=== PATIENT | female | born 2000 | race Caucasian/White ===

== ENCOUNTER 2024-02-10 16:04 | Inpatient (IN) | payer OTHER, SELFPAY ==
[2024-02-10] VITALS (53 sets, daily range): BP systolic 86–138; BP diastolic 47–83; PULSE 42–94; TEMP 36.5–37.1; O2SAT 92–100; BMI 33.3
[2024-02-10 16:49] LABS: Basophils Percent Auto 0.3 % (0.2-1.2); Eosinophils Absolute Auto 0.1 K/mm3 (0-0.3); Eosinophils Percent Auto 1.3 % (0-4.4); Hematocrit 31.4 % (37.0-47.0); Hemoglobin 10.4 g/dL (12.0-15.0); Immature Granulocyte Absolute 0.03 K/mm3 (0.00-0.031); Immature Granulocyte Percent A 0.4 % (0-0.5); Lymphocytes Absolute Auto 2.49 K/mm3 (0.9-3.2); Lymphocytes Percent Auto 31.1 % (18.3-44.2); Mean Corpuscular HGB Conc 33.1 g/dl (32-36); Mean Corpuscular Hemoglobin 30.5 pg (26-34); Mean Corpuscular Volume 92.1 fl (80-100); Mean Platelet Volume 9.5 fl (7.4-10.4); Monocytes Absolute Auto 0.6 K/mm3 (0.1-0.6); Monocytes Percent Auto 7.3 % (2.6-8.5); Neutrophils Absolute Auto 4.8 K/mm3 (1.3-6.7); Neutrophils Percent Auto 59.6 % (45.5-73.1); Platelet Count Result 240 k/mm3 (150-375); Red Blood Count 3.41 M/mm3 (4.2-5.4); Red Cell Distribution Width 13.4 % (11.5-14.5)
[2024-02-10] MEDS: miSOPROStol 25 MCG TABLET 50 MCG BUCCAL ×2 (16:53→20:56)
--- NOTE | 2024-02-10 17:03 | LDADM ---
This patient, Yon Kay, was admitted to Labor/Delivery/Recovery 104 on 02/10/24 at 16:04. Plans for labor, pain management and were discussed with patient. Patient/family oriented to hospital policies and general routines including ID bracelet, bed and alarms, visiting hours, pain management, procedures, bathroom and other care routines, personal items, smoking policy, room service/diet and guest tray routines, security routines, and visiting hours. Patient/Family are encouraged to report perceived risks to care and to ask questions if they do not understand what they are told or what they should do. See OBIX for further documentation.
--- NOTE | 2024-02-10 17:36 | WPDANESEPP ---
Anes - Eval Pre Procedure Procedure: Labor epidural Date/Time: 02/10/24 17:36 Surgeon: Paco Preop Diagnosis: Abdominal pain with contractions Pre Op Diagnosis: IOL Patient Data Age: 23 Gender: F Height: 1.73 m Weight: 99.5 kg Last Vital Signs Pulse 80 02/10/24 17:31 BP 86/47 L 02/10/24 17:31 O2 Del Method Room Air 02/10/24 16:58 Allergies Allergy/AdvReac Type Severity Reaction Status Date / Time amoxicillin Allergy Hives Verified 02/10/24 16:53 penicillin G Allergy Hives Verified 02/10/24 16:53 Home Medications Medication Instructions Recorded Confirmed Type Calcium 600 Iron/D 1 caplet PO DAILY 02/10/24 02/10/24 History Daily 1 pill PO DAILY 02/10/24 02/10/24 History Laboratory Tests 02/10/24 16:21 WBC 8.0 K/mm3 (4.5-10.0) RBC 3.41 L M/mm3 (4.2-5.4) Hgb 10.4 L g/dL (12.0-15.0) Hct 31.4 L % (37.0-47.0) MCV 92.1 fl (80-100) MCH 30.5 pg (26-34) MCHC 33.1 g/dl (32-36) RDW 13.4 % (11.5-14.5) Plt Count 240 k/mm3 (150-375) MPV 9.5 fl (7.4-10.4) Immature Gran % (Auto) 0.4 % (0-0.5) Neut % (Auto) 59.6 % (45.5-73.1) Lymph % (Auto) 31.1 % (18.3-44.2) [place] % (Auto) 7.3 % (2.6-8.5) Eos % (Auto) 1.3 % (0-4.4) Baso % (Auto) 0.3 % (0.2-1.2) Lymph # (Auto) 2.49 K/mm3 (0.9-3.2) [place] # (Auto) 0.6 K/mm3 (0.1-0.6) Eos # (Auto) 0.1 K/mm3 (0-0.3) Baso # (Auto) 0.0 K/mm3 (0.0-0.1) Abs Immat Gran (auto) 0.03 K/mm3 (0.00-0.031) Absolute Neuts (auto) 4.8 K/mm3 (1.3-6.7) Absolute Nucleated RBC 0.000 K/mm3 (0.0-0.012) Nucleated RBC % 0.0 % (0.0-0.2) RPR Pending HIV 1&2 Ab/P24 Ag 4thGn Pending Blood Type A Positive Antibody Screen Pending : gestational age HCG: positive Patient hx anesthesia problems: none Family hx anesthesia problems: none Results Review: All pre-operative results and documents have been reviewed as part of the pre-operative evaluation. [facility] Past Medical History Medical History (Updated 02/10/24 @ 17:37 by Musa Vieyra Jr., CRNA) Obesity and not yet delivered Social History Social History Smoking status: Never smoker Second hand tobacco smoke exposure: Yes Substance use: never Do You Feel Safe in your Home?: Yes Lack of Transportation: No Lack of Food: Never True Current Housing: I Have Housing Concerned About Future Housing: No Difficulty Paying Gas/Electric Bills: No Difficulty Paying for Meds: No Currently Unemployed: No Education: High School Diploma/GED Difficulty w/ Childcare or Family Care: No Spiritual care concerns: No Exam Day of Procedure 02/10/24 17:36 Patient weight: obese
[2024-02-10 17:41] LABS: HIV 1/2 Ab P24 Ag Result Negative (Negative)
[2024-02-10 18:22] LABS: Rapid Plasma Reagin Non-Reactive (NonReactive)
[2024-02-10] MEDS: ONDANSETRON INJ 4 MG/2 ML VIAL IV PUSH (19:14)
[2024-02-11] VITALS (388 sets, daily range): BP systolic 73–178; BP diastolic 30–158; PULSE 25–160; TEMP 36.2–37.1; O2SAT 80–100
[2024-02-11] MEDS: miSOPROStol 25 MCG TABLET 50 MCG BUCCAL ×2 (00:55→06:58)
[2024-02-11] MEDS: ONDANSETRON INJ 4 MG/2 ML VIAL IV PUSH ×2 (02:32→14:21)
[2024-02-11] MEDS: fentaNYL CITRATE INJ (*CRX) 100 MCG/2 ML VIAL 50 MCG IV PUSH ×3 (03:45→15:29)
[2024-02-11] MEDS: METOCLOPRAMIDE HCL INJ 10 MG/2 ML VIAL IV PUSH ×2 (03:50→12:02)
--- NOTE | 2024-02-11 07:20 | WPDOBADMIT ---
Obstetrics - Admit Note Admission Note: record reviewed. No pertinent additions to the history and/or any subsequent changes in the physical findings that are not consistent with the expected course of the were found. Additions to the history and/or subsequent changes in the physical findings follow. Pt here for IOL for IUGR, anticipate vaginal delivery
--- NOTE | 2024-02-11 12:12 | WPDANESEPP ---
Anes - Eval Pre Procedure Procedure: labor epidural Date/Time: 02/11/24 12:12 Surgeon: marie Preop Diagnosis: pain during labor Pre Op Diagnosis: IOL Patient Data Age: 23 Gender: F Height: 1.73 m Weight: 99.5 kg Last Vital Signs Temp 37.0 C 02/11/24 07:00 Pulse 51 L 02/11/24 12:01 BP 134/37 L 02/11/24 12:01 Pulse Ox 100 02/11/24 12:09 O2 Del Method Room Air 02/10/24 16:58 Allergies Allergy/AdvReac Type Severity Reaction Status Date / Time amoxicillin Allergy Hives Verified 02/10/24 16:53 penicillin G Allergy Hives Verified 02/10/24 16:53 Home Medications Medication Instructions Recorded Confirmed Type Calcium 600 Iron/D 1 caplet PO DAILY 02/10/24 02/10/24 History Daily 1 pill PO DAILY 02/10/24 02/10/24 History Laboratory Tests 02/10/24 16:21 WBC 8.0 K/mm3 (4.5-10.0) RBC 3.41 L M/mm3 (4.2-5.4) Hgb 10.4 L g/dL (12.0-15.0) Hct 31.4 L % (37.0-47.0) MCV 92.1 fl (80-100) MCH 30.5 pg (26-34) MCHC 33.1 g/dl (32-36) RDW 13.4 % (11.5-14.5) Plt Count 240 k/mm3 (150-375) MPV 9.5 fl (7.4-10.4) Immature Gran % (Auto) 0.4 % (0-0.5) Neut % (Auto) 59.6 % (45.5-73.1) Lymph % (Auto) 31.1 % (18.3-44.2) Door % (Auto) 7.3 % (2.6-8.5) Eos % (Auto) 1.3 % (0-4.4) Baso % (Auto) 0.3 % (0.2-1.2) Lymph # (Auto) 2.49 K/mm3 (0.9-3.2) Door # (Auto) 0.6 K/mm3 (0.1-0.6) Eos # (Auto) 0.1 K/mm3 (0-0.3) Baso # (Auto) 0.0 K/mm3 (0.0-0.1) Abs Immat Gran (auto) 0.03 K/mm3 (0.00-0.031) Absolute Neuts (auto) 4.8 K/mm3 (1.3-6.7) Absolute Nucleated RBC 0.000 K/mm3 (0.0-0.012) Nucleated RBC % 0.0 % (0.0-0.2) RPR Non-reactive (NonReactive) HIV 1&2 Ab/P24 Ag 4thGn Negative (Negative) Blood Type A Positive Antibody Screen Negative : gestational age HCG: positive Patient hx anesthesia problems: none Family hx anesthesia problems: none Results Review: All pre-operative results and documents have been reviewed as part of the pre-operative evaluation. [facility] Past Medical History Medical History (Updated 02/10/24 @ 17:37 by Musa Vieyra Jr., CRNA) Obesity and not yet delivered Social History Social History Smoking status: Never smoker Second hand tobacco smoke exposure: Yes Substance use: never Do You Feel Safe in your Home?: Yes Lack of Transportation: No Lack of Food: Never True Current Housing: I Have Housing Concerned About Future Housing: No Difficulty Paying Gas/Electric Bills: No Difficulty Paying for Meds: No Currently Unemployed: No Education: High School Diploma/GED Difficulty w/ Childcare or Family Care: No Spiritual care concerns: No Exam Day of Procedure 02/11/24 12:12
--- NOTE | 2024-02-11 12:22 | PM.OBPNLAB ---
Pain Control Date/time seen: 02/11/24 12:22 Pain control: tolerating well Pelvic Exam Dilation (cm): 3 Effacement (%): 60 station: -1 Amniotic membrane status: Ruptured (AROM moderate amount of clear, odorless fluid) Contractions Monitor mode: None (unable to assess, IUPC placed without difficulty) Status status: Category l
[2024-02-11] MEDS: LACTATED RINGERS 1,000 ML 125 ML IV CONT ×4 (12:57→18:27)
--- NOTE | 2024-02-11 13:46 | WPDANESEPP ---
Anes - Eval Pre Procedure Procedure: Labor Epidural Date/Time: 02/11/24 13:46 Surgeon: Dr. Antonio Preop Diagnosis: Labor pain Pre Op Diagnosis: IOL Patient Data Age: 23 Gender: F Height: 1.73 m Weight: 99.5 kg Last Vital Signs Temp 36.9 C 02/11/24 11:00 Pulse 49 L 02/11/24 13:35 BP 112/37 L 02/11/24 13:35 Pulse Ox 100 02/11/24 13:45 O2 Del Method Room Air 02/10/24 16:58 Allergies Allergy/AdvReac Type Severity Reaction Status Date / Time amoxicillin Allergy Hives Verified 02/10/24 16:53 penicillin G Allergy Hives Verified 02/10/24 16:53 Home Medications Medication Instructions Recorded Confirmed Type Calcium 600 Iron/D 1 caplet PO DAILY 02/10/24 02/10/24 History Daily 1 pill PO DAILY 02/10/24 02/10/24 History Laboratory Tests 02/10/24 16:21 WBC 8.0 K/mm3 (4.5-10.0) RBC 3.41 L M/mm3 (4.2-5.4) Hgb 10.4 L g/dL (12.0-15.0) Hct 31.4 L % (37.0-47.0) MCV 92.1 fl (80-100) MCH 30.5 pg (26-34) MCHC 33.1 g/dl (32-36) RDW 13.4 % (11.5-14.5) Plt Count 240 k/mm3 (150-375) MPV 9.5 fl (7.4-10.4) Immature Gran % (Auto) 0.4 % (0-0.5) Neut % (Auto) 59.6 % (45.5-73.1) Lymph % (Auto) 31.1 % (18.3-44.2) [place] % (Auto) 7.3 % (2.6-8.5) Eos % (Auto) 1.3 % (0-4.4) Baso % (Auto) 0.3 % (0.2-1.2) Lymph # (Auto) 2.49 K/mm3 (0.9-3.2) [place] # (Auto) 0.6 K/mm3 (0.1-0.6) Eos # (Auto) 0.1 K/mm3 (0-0.3) Baso # (Auto) 0.0 K/mm3 (0.0-0.1) Abs Immat Gran (auto) 0.03 K/mm3 (0.00-0.031) Absolute Neuts (auto) 4.8 K/mm3 (1.3-6.7) Absolute Nucleated RBC 0.000 K/mm3 (0.0-0.012) Nucleated RBC % 0.0 % (0.0-0.2) RPR Non-reactive (NonReactive) HIV 1&2 Ab/P24 Ag 4thGn Negative (Negative) Blood Type A Positive Antibody Screen Negative : gestational age (MESHA 03/02/24) HCG: positive Patient hx anesthesia problems: none Family hx anesthesia problems: none Results Review: All pre-operative results and documents have been reviewed as part of the pre-operative evaluation. [facility] Past Medical History Medical History Obesity and not yet delivered Social History Social History Smoking status: Never smoker Second hand tobacco smoke exposure: Yes Substance use: never Do You Feel Safe in your Home?: Yes Lack of Transportation: No Lack of Food: Never True Current Housing: I Have Housing Concerned About Future Housing: No Difficulty Paying Gas/Electric Bills: No Difficulty Paying for Meds: No Currently Unemployed: No Education: High School Diploma/GED Difficulty w/ Childcare or Family Care: No Spiritual care concerns: No Exam Day of Procedure 02/11/24 13:46 Lungs: normal air movement Neurological: alert and oriented
[2024-02-11] MEDS: TERBUTALINE SULFATE 1 MG/ML VIAL 0.25 MG SUB-Q (17:59)
[2024-02-11] MEDS: OXYTOCIN 30 UNITS/NS 500 ML 30 UNITS/500 ML BAG IV CONT (20:00)
[2024-02-12] VITALS (210 sets, daily range): BP systolic 77–143; BP diastolic 27–115; PULSE 40–180; RESP 16–18; TEMP 36.2–37.4; O2SAT 71–100
[2024-02-12] MEDS: LACTATED RINGERS 1,000 ML 125 ML IV CONT ×3 (03:09→08:45)
[2024-02-12] MEDS: ONDANSETRON INJ 4 MG/2 ML VIAL IV PUSH (05:21)
[2024-02-12] MEDS: fentaNYL CITRATE INJ (*CRX) 100 MCG/2 ML VIAL 50 MCG IV PUSH ×2 (07:24→07:49)
[2024-02-12] MEDS: PHENYLEPHRINE 1,000 MCG/10 ML SYRINGE 100 MCG IV PUSH (08:32)
--- NOTE | 2024-02-12 09:38 | PM.OBPNLAB ---
Pain Control Date/time seen: 02/12/24 09:38 Pelvic Exam Dilation (cm): 7 Effacement (%): 80 station: -1 Amniotic membrane status: Ruptured (AROM moderate amount of clear, odorless fluid) Contractions Monitor mode: Internal Status status: Category ll (late declerations, resolve with frequent position changes)
[2024-02-12] MEDS: ceFAZolin 2 GM/D5W 50 ML 2 GM/50 ML BAG IVPB (10:30)
[2024-02-12] MEDS: OXYTOCIN 30 UNITS/NS 500 ML 30 UNITS/500 ML BAG 125 UNITS IV CONT (11:19)
--- NOTE | 2024-02-12 11:20 | PM.OBPRVD ---
OB - Vaginal Delivery Note Procedure Delivery date: 02/12/24 Events: Intrauterine Growth Restriction (IUGR) Intrapartal Events: Decelerations and Non-Reassuring Status Induction method: AROM, Per Misoprostol Protocol and Per Pitocin Protocol Delivery monitor: External FHT and Internal Uterine Route of delivery: Episiotomy description: Right Mediolateral Delivery repair: vicryl Specimen: Yes Quantitative Blood Loss (ml): 250 Anesthesia type: Epidural Disposition: Floor Complications: Other complications [place] Baby Date of : 02/12/24 Time of : 10:55 Weeks of gestation at delivery: 37 Infant gender: Male Weight (pounds): 4 Weight (ounces): 9 presentation: vertex position: Left Occiput Anterior Placenta delivery description: Spontaneous Cord Vessel Description: 3 Vessels, Nuchal Cord (x3), Loose and Clamped/Cut Narrative: heart rate category 2, when CNM at bs to begin pushing, status vertex position, OA, cervix completely dilated, 0 station. After 2 pushes, decelerations noted with little maternal effort due to exhaustion. Dr. Pérez called and at bs. discussed with pt risks of vacuum delivery, pt agreed. pt in lithotomy position and comfortable with epidural. Bladder emptied by okeefe catheter. and removed prior to placement. Kiwi Vacuum placed while fetus +2. Negative pressure to desires range while pushing, released after each contraction for a total of 4 contractions, descent noted with each contraction/pull. No pop offs. after 2nd pull episiotomy made after consenting the patient. fetus then delivered with Nuchal X3 and looped up near the chest. anterior shoulder then delivered easily and the rest of the baby followed, to warmer for immediate evaluation with the mainframe systems administrator and nursery staff. cord gasses collected.
[2024-02-12] MEDS: WITCH HAZEL 40 PADS 1 PAD TOPICAL (13:43)
[2024-02-12] MEDS: BENZOCAINE 20% AER SPR (*SP) 56 GM CAN 1 SPRAY TOPICAL (13:43)
[2024-02-12] MEDS: ACETAMINOPHEN 325 MG TABLET 650 MG PO (13:44)
[2024-02-12] MEDS: IBUPROFEN 600 MG TABLET PO (13:44)
[2024-02-13] MEDS: IBUPROFEN 600 MG TABLET PO (04:59)
[2024-02-13] MEDS: ACETAMINOPHEN 325 MG TABLET 650 MG PO (04:59)
[2024-02-13 05:06] VITALS: BP 125/67; PULSE 59; RESP 18; TEMP 36.8; O2SAT 99
[2024-02-13 05:56] LABS: Hemoglobin 9.8 g/dL (12.0-15.0)
[2024-02-13 07:38] VITALS: BP 100/61; PULSE 63; RESP 16; TEMP 36.7; O2SAT 96
[2024-02-13] MEDS: POLYSACCHARIDE IRON COMPLEX 150 MG CAPSULE PO (08:01)
[2024-02-13] MEDS: DOCUSATE SODIUM 100 MG CAPSULE PO (08:01)
--- NOTE | 2024-02-13 08:52 | PM.OBPNVD ---
OB - PN: Subj Subjective Date/time seen: 02/13/24 08:52 Interval history: pp day 1 baby transferred denies complaints plan d/c home OB - PN: Obj Data Labs 02/13/24 05:31 Labs: Laboratory Results - last 24 hr 02/13/24 05:31 Hgb 9.8 L Hct 31.0 L OB - PN A/P Plan day: 1 Plan: routine care and discharge home Time Spent With Patient Time: Total time spent is greater than 50% in coordination of care (as documented) at patient's floor/unit and/or counseling patient: Review of Systems Review of Systems: All systems reviewed & are unremarkable except as noted in HPI and below Exam Const: General: cooperative Chest: Chest palpation & inspection: normal inspection of the chest Resp: Effort & Inspection: normal respiratory effort Cardio: Rate: regular rate Rhythm: regular rhythm Skin: General skin exam: normal color Extrem: Right lower extremity: normal to inspection Left lower extremity: normal to inspection
--- NOTE | 2024-02-13 08:55 | PM.OBDSVD ---
DS: Admitting Diagnosis Discharge Date 02/13/24 Admitting Diagnosis IOL, IUGR DS: Discharge Diagnosis Discharge Diagnosis (1) Vaginal delivery: Code(s): O80 - Encounter for full-term uncomplicated delivery Status: Acute OB - DS: Summary OB Procedures : None OB Procedures Intrapartum: Spontaneous Vag Delivery OB Procedures: : None Peripartum Data Episiotomy description: Right Mediolateral Time Spent with Patient Time attestation: Total time spent providing and/or coordinating discharge services: DS: Data Data Completed and Pending Pending studies at discharge: Pending at discharge 02/12/24 11:05 Surgical [PTH] Routine Labs on day of discharge: Labs from last 24 hours 02/13/24 05:31 Hgb 9.8 L Hct 31.0 L Discharge Plan Discharge Attending physician on discharge: Jimbo Pérez Discharging Clinician: Radha Pérez Patient Disposition: Home, Self-Care Activity: pelvic rest Diet: regular Patient Instructions: Antibiotic Form Stand Alone Forms: General Discharge Information Follow-up/Referrals: Radha Pérez CNM [Certified Nurse Sr. Logistics Analyst] - 4 Weeks Discharge Medications: New ibuprofen 600 mg Tablet 600 mg PO Q6H PRN (Reason: Cramping) Qty: 30 0RF Continued Daily 1 pill PO DAILY Discontinued Calcium 600 Iron/D 1 caplet PO DAILY Date of admission: 02/10/24 16:04 Primary Care Provider: UNKNOWN,DOCTOR Admitting Provider: Eugenio Antonio Attending physician on admission: Eugenio Antonio Condition: Stable
--- NOTE | 2024-02-13 08:59 | PC.NURSE ---
No follow up appointment scheduled for this patient per Cryptologic Supervisor Radha Pérez.
== END 2024-02-13 09:40 | disposition home or self-care (01) | DRG 560 ==
LOC: ANHLDR 16:07 → ANHOB2 02-12 14:55
PROVIDERS: Advanced Practice Midwife; Admitting Provider Obstetrics & Gynecology; Visit Provider Obstetrics & Gynecology
DX: O36.5930 Maternal care for other known or suspected poor fetal growth, third trimester, not applicable or unspecified (principal); O76 Abnormality in fetal heart rate and rhythm complicating labor and delivery; O69.81X0 Labor and delivery complicated by cord around neck, without compression, not applicable or unspecified; Z3A.37 37 weeks gestation of pregnancy; Z37.0 Single live birth
CPT/HCPCS: 36415; 85014; 85018; 85025; 86592; 86703; 86850; 86900; 86901; A9270; G0432; J0690; J2371; J2405; J2590; J2765; J2795; J3010; J3105; J7120